=== PATIENT | male | born 1985 | race Caucasian/White ===

== ENCOUNTER 2024-10-17 09:27 | Emergency (ER) | payer SELFPAY ==
[2024-10-17 09:27] VITALS: BP 144/87; PULSE 101; RESP 22; TEMP 36.2; O2SAT 95; BMI 45.2
--- NOTE | 2024-10-17 09:40 | EDS_ITS ---
HPI History of Present Illness Chief Complaint: General Illness Informant: patient and friend Narrative Narrative: 39-year-old male presenting to the emergency room with 1 week history of cough rhinorrhea ear pressure sore throat. He states that this morning he had persisting cough and was experiencing dyspnea. No reported fevers or diarrhea. He states he is a diabetic and supposed to be taking metformin but currently is not on it due to a lack of insurance since moving from [place] a little over a month ago. No sputum production. He notes drainage from the eyes and eye redness on the right. Patient notes his chest is sore from coughing [facility] Medical History (Updated 10/17/24 @ 10:[address] Rei Singleton, DO) Dandy-Walker malformation Diabetes mellitus Home Medications ?Medication ?Instructions ?Recorded ?Last Taken ?Type NK 10/17/24 Unknown History azithromycin 250 mg tablet See Rx Instructions PO .COMPLEX #6 10/17/24 Unknown Rx (Zithromax Z-Gustavo) tabs ciprofloxacin HCl 0.3 % eye drops See Rx Instructions EACH EYE 10/17/24 Unknown Rx .COMPLEX #5 mL Allergy/AdvReac Type Severity Reaction Status Date / Time No Known Allergies Allergy Verified 10/17/24 09:27 Social History Smoking Status: Current every day smoker tobacco type: e-cigarettes ROS ROS ED Constitutional Constitutional ED: Denies chills, fever(s) or weight loss Eyes Eyes: Reports other Details: Right eye redness bilateral eye drainage ; Denies change in vision or diplopia ENT ENT ED: Reports ear pain, rhinorrhea and sore throat Cardiovascular Cardiovascular: Reports chest pain; Denies orthopnea, palpitations or racing heartbeat Respiratory/Chest Respiratory/Chest: Reports cough, dyspnea and dyspnea on exertion; Denies orthopnea or sputum Gastrointestinal Gastrointestinal: Denies abdominal pain, diarrhea, nausea or vomiting Genitourinary Genitourinary ED: Denies dysuria, hematuria or urinary frequency Musculoskeletal Musculoskeletal: Denies arthralgias or myalgias Integumentary Denies abscess or rash Neurologic Neurologic: Denies headache(s) or weakness Psychiatric Psychiatric: Denies anxiety, depression, suicidal ideation or suicidal thoughts Endocrine Endocrinology: Denies polydipsia, polyphagia or polyuria Allergic/Immunologic Allergic/Immunologic ED: Denies mouth swelling, tongue swelling or urticaria EXAM Physical Exam Const Vital Signs: 10/17/24 09:27 10/17/24 10:09 Temperature 97.1 F L Temperature Source Temporal Pulse Rate 101 H Respiratory Rate 22 H Respiratory Effort Normal Non-Labored Respiratory Pattern Normal Blood Pressure 144/87 H Blood Pressure Mean 106 Pulse Ox 95 Oxygen Delivery Method Room Air Positive well nourished and well developed General Appearance ED: well developed HEENT Reports normocephalic, head/scalp atraumatic and moist mucous membranes HEENT Narrative: Turbinate edema rhinorrhea no significant postnasal drip. No pharyngeal erythema. No evidence of abscess. Eyes PERRL and EOMs intact bilaterally Eyes Narrative: Conjunctival injection on the right. Bilateral exudate on the eyelashes inferiorly and over the medial orbit Neck no lymphadenopathy, supple and no JVD Resp normal respiratory effort and clear to auscultation bilaterally Cardio regular rate, regular rhythm and no murmurs GI normal to inspection, nondistended, normoactive bowel sounds and non-tender Palpation: soft Back/Spine no CVA tenderness and normal ROM Extremity normal to inspection General Extremety ED: Negative for edema General Extremity: Negative for edema Neuro oriented x3 and CN's II-XII intact bilaterally Sensorium / Orientation: alert Motor Exam: strength 5/5 throughout Psych mental status grossly normal Mood & Affect: Negative for depressed or tearful Skin no rashes or lesions noted and no wounds MDM MDM MDM Narrative Medical decision making narrative: Differential diagnosis includes but not limited to chest wall strain bronchitis pneumonia pleural effusion bronchospasm viral URI conjunctivitis otitis media My independent interpretation of the chest x-ray is no acute process. Radiology concurs. I will treat the patient with azithromycin given the large amount of mycoplasma in the area currently. Given that the right eye is erythematous with exudate still think there is a high probability this could be viral but we can cover with some ciprofloxacin ophthalmic. Patient given good Rx card. He plans on talking with people the people. He needs to establish primary care. History & Record Review Discussion w/independent historian: Patient Radiography Diagnostic Testing: Clinical Impression(s) from Imaging Studies Chest X-Ray 10/17/24 09:45 IMPRESSION: Normal x-ray examination of the chest. Electronically Signed: Mateo Pink MD at 10:26 EST , Discharge Plan Triage Chief Complaint: General Illness ED Provider: Rei Singleton Dx/Rx/DC Orders Clinical Impression: Conjunctivitis, Acute bronchitis Instructions: What Is Acute Bronchitis?, ED Conjunctivitis, Nonspecific Prescriptions: New azithromycin [Zithromax Z-Gustavo] 250 mg tablet See Rx Instructions .ROUTE .COMPLEX Qty: 6 0RF Rx Instructions: For 250 mg dose pack: take 500 mg today (day 1), then 250 mg for 4 days (days 2-5) ciprofloxacin HCl 0.3 % drops See Rx Instructions .ROUTE .COMPLEX Qty: 5 0RF Rx Instructions: put 1-2 drps in affected eye(s) every 2hr up to 8 times/day x2days; then 4 times/day x5days No Action NK Primary Care Provider: Care Physician,No Primary Referrals: Care Physician,No Primary [Primary Care Provider] - Print Language: Barbadian Disposition Disposition: Home, Self Care
--- NOTE | 2024-10-17 09:45 | RAD_ITS ---
STUDY: X-RAY CHEST REASON FOR EXAM: Male, 39 years old. cough dyspnea TECHNIQUE: PA and lateral views of the chest. COMPARISON: None. FINDINGS: The lungs are clear and expanded. There is no demonstrated pleural abnormality. Normal size heart. Normal mediastinum and jacqueline. Normal visualized pulmonary arteries. Normal visualized aortic arch and descending thoracic aorta. Normal visualized thoracic spine. Normal visualized ribs, clavicles, and shoulders. There is no demonstrated abnormality of the visualized soft tissue structures of the upper abdomen. RAD/Chest PA and Lateral IMPRESSION: Normal x-ray examination of the chest. Electronically Signed: Mateo Pink MD at 10:26 [facility] ,
[2024-10-17 10:50] VITALS: TEMP 36.9
== END 2024-10-17 10:51 | disposition home or self-care (01) ==
PROVIDERS: Emergency Provider Emergency Medicine; Visit Provider Emergency Medicine
DX: J20.9 Acute bronchitis, unspecified (principal); E11.9 Type 2 diabetes mellitus without complications; Z79.84 Long term (current) use of oral hypoglycemic drugs; H10.9 Unspecified conjunctivitis; F17.290 Nicotine dependence, other tobacco product, uncomplicated
CPT/HCPCS: 71046; 99282

== ENCOUNTER 2024-11-20 20:20 | Emergency (ER) | payer SELFPAY ==
[2024-11-20 20:20] VITALS: BP 148/94; PULSE 75; RESP 16; TEMP 36.1; O2SAT 100; BMI 42.3
--- NOTE | 2024-11-20 20:31 | CT_ITS ---
STUDY: CT BRAIN WITHOUT CONTRAST REASON FOR EXAM: Male, 39 years old. LEON RADIATION DOSAGE (If Supplied By Facility): CTDIvol = ( 44.99 ) mGy, DLP = ( 914.22 ) mGycm TECHNIQUE: Transaxial CT imaging of the brain was performed without administration of intravenous contrast material. Individualized dose optimization techniques were used for this CT. The protocol utilizes one or more of the following dose reduction techniques: automated exposure control, adjustment of mA and/or kV according to patient size,and/or use of iterative reconstruction technique. COMPARISON: No relevant priors. FINDINGS: Normal soft tissue structures. Normal calvarium. Normal size ventricles and extra-axial spaces for the patient''s age. Normal white matter tracts of the cerebral hemispheres. Normal basal ganglia and thalami. Normal brainstem. Normal cerebellum. Retrocerebellar cystic mass measures 4.1 x 10.4 cm in AP and transverse dimensions. There is no intracranial hemorrhage. There are no findings of an acute ischemic infarction. Normal visualized paranasal sinuses. CT/Brain/Head without Contrast IMPRESSION: Large Cerebellar cystic mass. MRI with and without IV contrast recommended if this has not already been performed. Electronically Signed: Fredi Hamilton MD at 22:52 EST ,
--- NOTE | 2024-11-20 20:35 | EX.ED.DYSGE1 ---
HPI History of Present Illness Chief Complaint: Headache Narrative Narrative: Chief complaint and HPI: Headache. 39-year-old male with past medical history of Dandy-Walker malformation and DM2 presents for evaluation of headache. Patient states that he has suffered from headaches since the age of 3. He is not on any maintenance migraine therapy. He states that he takes Tylenol and Advil as needed. Patient just recently moved to [place] from out of [facility] approximately 2 months ago and has not yet established with a PCP. Patient states that he has not been taking his metformin. He states for the past year his headaches has worsened. He has not had further workup of his headaches. Patient states he developed a headache this morning that has gradually worsened. Associated symptom is photophobia. He denies any fever, chills, chest pain, shortness of breath abdominal pain, nausea, vomiting, neurological deficit, numbness or tingling. Denies any trauma. Review of systems: See HPI Medications: As listed on the chart Allergies: As listed on the chart PFSH: Per chart Vital signs: As listed on the chart. Reviewed. Physical exam: Gen: A&O x3, NAD Head: Normocephalic, atraumatic Eyes: No sclera icterus, conjunctiva clear, PERRL, EOMI ENT: TMs clear BL, moist mucous membranes, posterior oropharynx unremarkable, uvula midline Neck: Trachea midline, No JVD, Full ROM, No meningismus CV: RRR, no murmurs, no peripheral edema Resp: Lungs CTA BL, no w/r/c GI: Abd soft, non-distended, non-tender, no r/r/g Musc: Full ROM, no deformity Skin: Warm, dry, no rash Neuro: Alert, oriented, grossly intact, sensation intact Psych: Cooperative, appropriate mood and affect [facility] Medical History Dandy-Walker malformation Diabetes mellitus Home Medications ?Medication ?Instructions ?Recorded ?Last Taken ?Type azithromycin 250 mg tablet See Rx Instructions PO .COMPLEX #6 10/17/24 Unknown Rx (Zithromax Z-Gustavo) tabs ciprofloxacin HCl 0.3 % eye drops See Rx Instructions EACH EYE 10/17/24 Unknown Rx .COMPLEX #5 mL metformin 1,000 mg tablet 1,000 mg PO BID 30 days #60 tabs 11/20/24 Unknown Rx Allergy/AdvReac Type Severity Reaction Status Date / Time No Known Allergies Allergy Verified 11/20/24 20:20 Social History Smoking Status: Current every day smoker tobacco type: e-cigarettes EXAM Physical Exam Const Vital Signs: 11/20/24 20:20 11/20/24 22:02 11/20/24 23:23 Temperature 97 F L 98.2 F Temperature Source Temporal Pulse Rate 75 47 L 64 Respiratory Rate 16 18 18 Blood Pressure 148/94 H 127/71 H 134/95 H Blood Pressure Mean 112 89 108 Pulse Ox 100 99 98 Oxygen Delivery Method Room Air Room Air MDM MDM MDM Narrative Medical decision making narrative: 39-year-old male with past medical history of Dandy-Walker malformation and DM2 presents for evaluation of headache. Differential diagnosis includes but is not limited to tension headache, migraine headache, electrolyte abnormality, intracranial abnormality, hyperglycemia. Migraine cocktail ordered for symptoms. CT head ordered with basic labs. CBC without leukocytosis or anemia. BMP relatively unremarkable. Patient's glucose is 150. CT head shows cerebellar cystic mass. This is consistent with patient's known Dandy-Walker malformation. No acute intracranial pathology otherwise. On reexamination, patient's headache has improved. Patient stable to discharge home. He was educated to follow-up with the PCP provided to him. Given that he has been out of his metformin for 2 weeks and is supposed to be on 1000 mg metformin twice daily this prescription was written. He confirmed understanding the plan. Patient stable to discharge home. Return precautions explained Impression: 1. Headache 2. Known Dandy-Walker malformation 3. History of DM 2, ran out of metformin prescription which was refilled Lab Data Labs: Laboratory Results - last 24 hr 11/20/24 20:43 WBC 7.6 RBC 4.84 Hgb 15.3 Hct 44.8 MCV 92.6 MCH 31.6 MCHC 34.2 RDW Std Deviation 42.8 RDW Coeff of Laura 12.7 Plt Count 276 MPV 9.0 Immature Gran % (Auto) 0.300 Neut % (Auto) 57.8 Lymph % (Auto) 30.3 [place] % (Auto) 9.5 Eos % (Auto) 1.2 Baso % (Auto) 0.9 Absolute Neuts (auto) 4.4 Absolute Lymphs (auto) 2.30 Nucleated RBC % 0 Sodium 141 Potassium 3.5 Chloride 110 H Carbon Dioxide 28.0 Anion Gap 3 L BUN 13 Creatinine 0.89 Estim Creat Clear Calc 139.72 Est GFR (MDRD) Af Amer 122 Est GFR (MDRD) Non-Af 101 BUN/Creatinine Ratio 14.6 Glucose 150 H Calcium 8.7 Radiography Diagnostic Testing: Clinical Impression(s) from Imaging Studies Brain CT 11/20/24 20:31 IMPRESSION: Large Cerebellar cystic mass. MRI with and without IV contrast recommended if this has not already been performed. Electronically Signed: Fredi Hamilton MD at 22:52 EST , Discharge Plan Triage Chief Complaint: Headache ED Provider: Reinaldo Pereira Dx/Rx/DC Orders Instructions: ED Headache Unspecified Prescriptions: New metformin 1,000 mg tablet 1,000 mg PO BID 30 Days Qty: 60 0RF No Action azithromycin [Zithromax Z-Gustavo] 250 mg tablet See Rx Instructions .ROUTE .COMPLEX Qty: 6 0RF Rx Instructions: For 250 mg dose pack: take 500 mg today (day 1), then 250 mg for 4 days (days 2-5) ciprofloxacin HCl 0.3 % drops See Rx Instructions .ROUTE .COMPLEX Qty: 5 0RF Rx Instructions: put 1-2 drps in affected eye(s) every 2hr up to 8 times/day x2days; then 4 times/day x5days Primary Care Provider: Care Physician,No Primary Referrals: Manish Faulkner MD [Med Staff - Active Staff] - 3-5 Days Care Physician,No Primary [Primary Care Provider] - Activity Restrictions/Additional Instructions: Tylenol and Motrin as needed for pain for headaches. Given that you ran out of your metformin 2 weeks ago. You were given a new prescription for metformin. You need to follow-up with the PCP provided above for refills and continued medical management. Print Language: Micronesian Disposition Disposition: Home, Self Care
[2024-11-20] MEDS: 0.9% Normal Saline (1000mL) 1,000 ML 1000 ML IV (20:42)
[2024-11-20] MEDS: Morphine 4 MG/ML Syringe IV (20:42)
[2024-11-20] MEDS: Ondansetron 4 MG/2 ML Vial IV (20:42)
[2024-11-20] MEDS: DiphenhydrAMINE 50 MG/ML Syringe 25 MG IV (20:42)
[2024-11-20] MEDS: Metoclopramide 10 MG/2 ML Vial IV (20:42)
[2024-11-20 20:48] LABS: Absolute Neutrophil Count 4.4 X10^3/uL (2.0-7.7); Basophil# 0.07 X10^3/uL; Basophil% 0.9 % (0-1); Eosinophil# 0.09 X10^3/uL; Eosinophils% 1.2 % (0-5); Hematocrit 44.8 % (40-54); Hemoglobin 15.3 g/dL (13.0-16.5); Lymphocyte % 30.3 % (19-41); Mean Corp Hgb Conc 34.2 g/dL (32-36); Mean Corpuscular Hgb 31.6 pg (27.0-32.0); Mean Corpuscular Volume 92.6 fL (80-94); Monocyte# 0.72 X10^3/uL; Monocyte% 9.5 % (0-10); NRBC Flagged by Analyzer 0 % (0-5); Neutrophil % 57.8 % (47-70); Platelet Count 276 K/mm3 (150-450); RBC Distribution Width CV 12.7 % (11.6-14.6); RBC Distribution Width SD 42.8 fl (35.1-43.9); Red Blood Count 4.84 M/mm3 (4.6-6.2); White Blood Count 7.6 K/mm3 (4.4-11.0)
[2024-11-20 21:02] LABS: Anion Gap 3 (5-15); BUN 13 mg/dL (7-18); BUN/Creat Ratio 14.6 RATIO (10-20); Calcium,Total 8.7 mg/dL (8.5-10.1); Chloride 110 mmol/L (98-107); Creatinine, Serum 0.89 mg/dL (0.70-1.30); EST Glomerular Filtration Rate 101 mL/min (>60); Est Glom Filt Rate - Afr Amer 122 mL/min (>60); Estimated Creatinine Clearance 139.72 ml/min; Glucose 150 mg/dL (74-106); Potassium 3.5 mmol/L (3.5-5.1); Sodium Level 141 mmol/L (136-145)
[2024-11-20 22:02] VITALS: BP 127/71; PULSE 47; RESP 18; O2SAT 99
[2024-11-20 23:23] VITALS: BP 134/95; PULSE 64; RESP 18; TEMP 36.8; O2SAT 98
== END 2024-11-20 23:24 | disposition home or self-care (01) ==
PROVIDERS: Emergency Provider Surgery; Visit Provider Surgery
DX: R51.9 Headache, unspecified (principal); Q03.1 Atresia of foramina of Magendie and Luschka; E11.9 Type 2 diabetes mellitus without complications; Z79.84 Long term (current) use of oral hypoglycemic drugs; F17.290 Nicotine dependence, other tobacco product, uncomplicated; Z76.0 Encounter for issue of repeat prescription
CPT/HCPCS: 70450; 80048; 85025; 96361; 96374; 96375; 99283; A4216; J2405